=== PATIENT | female | born 1935 | race Caucasian/White ===

== ENCOUNTER 2021-05-19 14:51 | Emergency (ER) | payer MEDICARE, OTHER ==
--- NOTE | 2021-05-19 16:56 | EDM.PDOC ---
ED HPI GENERAL MEDICAL PROBLEM - General Chief Complaint: Respiratory Problem Stated Complaint: DEEP COUGHING Time Seen by Provider: 05/19/21 15:36 Source of Information: Reports: Patient History Limitations: Reports: No Limitations - History of Present Illness INITIAL COMMENTS - FREE TEXT/NARRATIVE: 85 yo female presents with progressively worsening cough. fatigue over the last 5 days. She did have a telephone visit with her primary care clinic earlier this week and prescribed Tessalon pearls with little relief. poor appetite. denies fever or chills. denies lung disease. - Related Data Allergies Allergy/AdvReac Type Severity Reaction Status Date / Time No Known Allergies Allergy Verified 05/19/21 15:39 Home Meds: Home Meds Benzonatate 100 mg PO ASDIRECTED 05/19/21 [History] Fluoride (Sodium) [Prevident 5000] 1 dose TOP ASDIRECTED 05/19/21 [History] Omeprazole 20 mg PO DAILY 05/19/21 [History] Oxybutynin [Oxybutynin ER] 10 mg PO DAILY 05/19/21 [History] Phenylephrine/Dm/Acetaminop/Gg [Mucinex Fast-Max Cold-Flu Cap] 1 each PO ASDIRECTED 05/19/21 [History] amLODIPine Besylate [Norvasc] 5 mg PO DAILY 05/19/21 [History] guaiFENesin/Dextromethorphan [Chest Congestion Relief Dm Liq] 5 ml PO Q4HR 05/19/21 [History] lisinopriL [Lisinopril] 10 mg PO DAILY 05/19/21 [History] Past Medical History HEENT History: Reports: Cataract Cardiovascular History: Reports: CAD, High Cholesterol, Hypertension, NM, Stents Respiratory History: Reports: None Gastrointestinal History: Reports: GERD Genitourinary History: Reports: Urinary Incontinence [employer]OR History: Reports: Musculoskeletal History: Reports: Arthritis Neurological History: Reports: None Psychiatric History: Reports: None Endocrine/Metabolic History: Reports: None Hematologic History: Reports: None Immunologic History: Reports: None Oncologic (Cancer) History: Reports: None Dermatologic History: Reports: None - Infectious Disease History Infectious Disease History: Reports: Chicken Pox, Influenza, Measles, Mumps - Past Surgical History HEENT Surgical History: Reports: Cataract Surgery Cardiovascular Surgical History: Reports: Coronary Artery Stent, Percutaneous Transluminal Angioplasty GI Surgical History: Reports: None Musculoskeletal Surgical History: Reports: None Social & Family History - Tobacco Use Tobacco Use Status *Q: Former Tobacco User Used Tobacco, but Quit: Yes Month/Year Tobacco Last Used: 40 years ago - Caffeine Use Caffeine Use: Reports: Coffee - Recreational Drug Use Recreational Drug Use: No ED ROS GENERAL - Review of Systems Review Of Systems: See Below Constitutional: Reports: Malaise, Fatigue. Denies: Fever Respiratory: Reports: Shortness of Breath, Cough Cardiovascular: Denies: Chest Pain, Palpitations GI/Abdominal: Denies: Abdominal Pain ED EXAM, GENERAL - Physical Exam Exam: See Below Exam Limited By: No Limitations General Appearance: Alert, WD/WN, No Apparent Distress Ears: Normal External Exam, Hearing Grossly Normal, Normal TMs Nose: Normal Inspection, Normal Mucosa, No Blood Throat/Mouth: Normal Inspection, Normal Lips, Normal Teeth, Normal Gums, Normal Oropharynx, Normal Voice, No Airway Compromise Respiratory/Chest: No Respiratory Distress, Rhonchi (left lower). No: Crackles Cardiovascular: Regular Rate, Rhythm, Systolic Murmur GI/Abdominal: Soft, Non-Tender, No Distention Neurological: Alert, Oriented Psychiatric: Normal Affect, Normal Mood Lymphatic: No Adenopathy Course - Vital Signs Last Recorded V/S: Last Vital Signs Temp 36.4 C 05/19/21 15:58 Pulse 85 05/19/21 15:58 Resp 20 05/19/21 15:58 BP 126/50 L 05/19/21 15:58 Pulse Ox 90 L 05/19/21 15:58 - Orders/Labs/Meds Orders: Active Orders 24 hr Category Date Time Status Chest 2V [CR] Stat Exams 05/19/21 16:20 Taken Departure - Departure Time of Disposition: 17:48 Disposition: Home, Self-Care 01 Condition: Good Clinical Impression: Pneumonia Qualifiers: Pneumonia type: due to unspecified organism Laterality: right Lung location: lower lobe of lung Qualified Code(s): J18.9 - Pneumonia, unspecified organism - Discharge Information *PRESCRIPTION DRUG MONITORING PROGRAM REVIEWED*: Not Applicable *COPY OF PRESCRIPTION DRUG MONITORING REPORT IN PATIENT IVANIA: Not Applicable Instructions: Community-Acquired Pneumonia, Adult, [id number] Referrals: PCP,None [Primary Care Provider] - Forms: ED Department Discharge Additional Instructions: Azithromycin 500 mg daily fro 5 days starting today prednisone tapering dose starting tomorrow increase fluid intake with goal 1 liter Sepsis Event Note (ED) - Evaluation Sepsis Screening Result: No Definite Risk - Focused Exam Vital Signs: Vital Signs Temp Pulse Resp BP Pulse Ox 05/19/21 15:58 36.4 C 85 20 126/50 L 90 L 05/19/21 15:39 36.4 C 85 20 126/50 L 90 L - My Orders Last 24 Hours: My Active Orders 05/19/21 16:20 Chest 2V [CR] Stat - Assessment/Plan Last 24 Hours: My Active Orders 05/19/21 16:20 Chest 2V [CR] Stat
[2021-05-19] MEDS ORDERED: Azithromycin 250 MG Tab PO ONE (18:29)
--- NOTE | 2021-05-20 13:20 | CR ---
CHEST: 2 view CLINICAL HISTORY:Cough COMPARISON:None FINDINGS: Heart size and pulmonary vascular are normal. There are atherosclerotic changes in the aorta.. Lungs are generally hyperaerated. There is a patchy right lower lobe pneumonic infiltrate.. Impression: COPD Right lower lobe pneumonia
== END 2021-05-19 18:43 | disposition home or self-care (01) ==
LOC: JP.ED 14:51
DX: J18.9 Pneumonia, unspecified organism (principal); I10 Essential (primary) hypertension; E78.00 Pure hypercholesterolemia, unspecified; K21.9 Gastro-esophageal reflux disease without esophagitis; I25.2 Old myocardial infarction; I25.10 Atherosclerotic heart disease of native coronary artery without angina pectoris; Z79.899 Other long term (current) drug therapy; Z95.5 Presence of coronary angioplasty implant and graft; Z87.891 Personal history of nicotine dependence
CPT/HCPCS: 71046; 71046-26; 99284-25; A9270-GY